=== PATIENT | female | born 1955 | race Caucasian/White ===

== ENCOUNTER 2023-05-28 12:59 | Outpatient (OUT) | payer MEDICARE, SELFPAY ==
--- NOTE | 2023-05-28 13:12 | MM_ITS ---
Patient: VIDHI HAMILTON Exam Date: 05/28/2023 : 1955 Gender:F Ordering : DR Teri Gonzalez M.D. Admission #: [id number] Family : Order #: [id number] CLICK HERE TO VIEW EXAM RADIOLOGY REPORT PROCEDURE: MM TOMOSYNTHESIS DIAGNOSTIC RT COMPARISON: MG MAMM RT DIAG FU, 11/15/2022. MG MAMM SCREEN 3D BRODIE CAD, 10/29/2022. MG MAMM SCREEN 3D BRODIE CAD, 11/15/2020. MG MAMM SCREEN 3D BRODIE CAD, 09/10/2019. INDICATIONS: Abnormal Mammogram R92.8 Calculator Name NCI Breast Cancer Risk Assessment Tool 5 Year Breast Cancer Risk 4.50% Lifetime Breast Cancer Risk 15.40% Personal Breast Cancer No Personal Ovarian Cancer No Treatments None Family Cancers Father with bladder cancer at age ~70; Grandfather-maternal with throat,tongue cancer at age ~70; Mother with breast cancer at age 44. LOCATION: [facility] BREAST COMPOSITION: Heterogeneously dense,which may obscure small masses. FINDINGS: DIAGNOSTIC CATEGORY 2--BENIGN FINDING: RIGHT BREAST: Stable, chronic architectural distortion within the posterior upper inner quadrant. No significant suspicious finding. No significant change has occurred. RECOMMENDATIONS: ROUTINE MAMMOGRAM AND CLINICAL EVALUATION IN 12 MONTHS. PLEASE NOTE: A NORMAL MAMMOGRAM DOES NOT EXCLUDE THE POSSIBILITY OF BREAST CANCER. A CLINICALLY SUSPICIOUS PALPABLE LUMP SHOULD BE BIOPSIED. Dictated by: Frantz Stephens M.D. on 05/28/2023 at 13:35 Approved by: Frantz Stephens M.D. on 05/28/2023 at 13:38
== END 2023-05-28 13:00 | disposition home or self-care (01) ==
LOC: MAMMO 13:00
PROVIDERS: PCP Family Medicine; Visit Provider Family Medicine
DX: R92.8 Other abnormal and inconclusive findings on diagnostic imaging of breast (principal); Z80.52 Family history of malignant neoplasm of bladder; Z80.3 Family history of malignant neoplasm of breast; Z80.2 Family history of malignant neoplasm of other respiratory and intrathoracic organs
CPT/HCPCS: 77065; G0279

== ENCOUNTER 2024-08-06 11:22 | Outpatient (OUT) | payer MEDICARE, SELFPAY ==
--- NOTE | 2024-08-06 11:25 | MM_ITS ---
Patient Name: VIDHI HAMILTON MR#: [id number] : 1955 Exam Date: 08/06/2024 Ordering Doctor: DR Teri Gonzalez M.D. RADIOLOGY REPORT PROCEDURE: MM TOMOSYNTHESIS SCREENING BI COMPARISON: MG MAMM RT DIAG FU, 11/15/2022. MM TOMOSYNTHESIS DIAGNOSTIC RT, 05/28/2023. INDICATIONS: Screening mammogram Calculator Name NCI Breast Cancer Risk Assessment Tool 5 Year Breast Cancer Risk 4.50% Lifetime Breast Cancer Risk 14.90% Personal Breast Cancer No Personal Ovarian Cancer No Treatments None Family Cancers Father with bladder cancer at age ~70; Grandfather-maternal with throat,tongue cancer at age ~70; Mother with breast cancer at age 44. LOCATION: [facility] BREAST COMPOSITION: The breasts are heterogeneously dense,which may obscure small masses. FINDINGS: DIAGNOSTIC CATEGORY 2--BENIGN FINDING. NO CHANGE FROM COMPARISON. Scattered benign-appearing calcifications are present. Scattered benign-appearing lymph nodes are present. RIGHT BREAST: No significant suspicious finding. LEFT BREAST: No significant suspicious finding. RECOMMENDATIONS: ROUTINE MAMMOGRAM AND CLINICAL EVALUATION IN 12 MONTHS. PLEASE NOTE: A NORMAL MAMMOGRAM DOES NOT EXCLUDE THE POSSIBILITY OF BREAST CANCER. A CLINICALLY SUSPICIOUS PALPABLE LUMP SHOULD BE BIOPSIED. Dictated by: Dez Holguin MD on 08/06/2024 at 12:17 Approved by: Dez Holguin MD on 08/06/2024 at 12:18
== END 2024-08-06 11:23 | disposition home or self-care (01) ==
LOC: MAMMO 11:22
PROVIDERS: PCP Family Medicine; Visit Provider Family Medicine
DX: Z12.31 Encounter for screening mammogram for malignant neoplasm of breast (principal); Z80.52 Family history of malignant neoplasm of bladder; Z80.8 Family history of malignant neoplasm of other organs or systems; Z80.3 Family history of malignant neoplasm of breast
CPT/HCPCS: 77063; 77067

== ENCOUNTER 2025-05-17 09:06 | Emergency (ER) | payer MEDICARE, SELFPAY ==
--- NOTE | 2025-05-17 09:22 | SWNOTE1 ---
SW called Dr. Henriquez office to see if pt has any other contacts besides her who has , they do not.
--- OUTSIDE RECORDS SUMMARY | 2025-05-17 09:26 | XMS_ITS | Clinical Summary ---
Author Organization [facility] Address [address] [place] [address] Care Team Providers Care Station Installation Supervisor Name Role Phone Unavailable Primary Care Provider Unavailabl e Social History Tobacco Use Types Packs/Day Years Used Date Smoking Tobacco: Never Assessed Comments Unknown Sex and Gender Information Value Date Recorded Sex Assigned at Not on file Legal Sex Female 6:33 PM EDT Gender Identity Not on file Sexual Orientation Not on file Plan of Treatment Not on file
--- NOTE | 2025-05-17 09:49 | ED_ITS ---
HPI HPI - General Adult General Chief complaint: Cardiac Arrest/CPR Stated complaint: CARDIAC ARREST Time Seen by Provider: 05/17/25 09:36 Mode of arrival: ambulance History of Present Illness HPI narrative: 70-year-old female to the emergency department with chief complaint of cardiopulmonary arrest. [facility] brought the patient with CPR in progress to the emergency department. Report was received from food checkers and cashiers supervisor Prem. Call was for shortness of breath to the home. Shortly after arrival the patient had a witnessed arrest by EMS. ACLS interventions were initiated. 2 rounds of epi prior to arrival. 10 minutes total downtime prior to transport. IO was placed in the left tib-fib. LMA was placed, the patient arrived being bagged. PEA initial rhythm. Review of Systems ROS Status of ROS unobtainable due to medical condition Exam Narrative Exam Narrative: General: Patient in extremis Airway: LMA Breathing: Bagged, equal chest Circulation: Cool mottled skin, no pulse Disability: GCS 3 T Exposure: No evidence of trauma. Medical Decision Making MDM Narrative Medical decision making narrative: 70-year-old female to the emergency department as cardiopulmonary arrest from the field. PEA and pulseless on arrival. ACLS interventions were continued. Definitive airway was placed by myself see procedure note. Fluids were infused. H's and T's were considered. ACLS interventions. Addition of 2 A of bicarb. POCUS Echo showed cardiac standstill in each pulse check. After downtime of greater than 30 minutes, no response to ACLS interventions. Futility of continuation of resuscitation was considered. No reversible causes of arrest identified. The patient was pronounced at 0935 on 05/17/2025 by myself. PCP and paper products inspector were called. [facility] notified by nurse. Trevor Baum DO, FAAEM Procedure: Intubation Indication: The patient required emergent endotracheal intubation. Contraindications: None Medications: None An S3 blade was used to video visualize the patient?s vocal cords. Under visualization a 7.5 tube was passed easily through the cords. The tube was inserted to a depth of 21cm at the lip. The patient bagged easily. Breath sounds were equal bilaterally and there was no gurgling over the gastrum. Qualitative capnography showed appropriate color change with bagging. Tube was secured in the standard fashion. Patient tolerated the procedure well. Critical Care Procedure Note Authorized and Performed by: Trevor Baum DO Total critical care time: 30 min Due to a high probability of clinically significant, life threatening deterioration, the patient required my highest level of preparedness to intervene emergently and I personally spent this critical care time directly and personally managing the patient. This critical care time included obtaining a history; examining the patient; pulse oximetry; ordering and review of studies; arranging urgent treatment with development of a management plan; evaluation of patient's response to treatment; frequent reassessment; and, discussions with other providers. This critical care time was performed to assess and manage the high probability of imminent, life-threatening deterioration that could result in multi-organ failure. It was exclusive of separately billable procedures and treating other patients and teaching time. Please see MDM section and the rest of the note for further information on patient assessment and treatment. Medical Records Medical records reviewed: Yes I reviewed the patient's medical records Discharge Plan Discharge Patient Disposition: Probable Cause of Probable Cause of : Cardiac arrest
--- NOTE | 2025-05-17 10:12 | PC.NURSE ---
Dr Baum spoke with pt's PCP, FRANNIE SALMERON, and discussed case with her. Denies any known medical history. This RN called [facility] coroner's office, no answer, LM. Pt's neighbor, Felicita, reports of a sister who lives in [place] and is trying to get her number.
--- NOTE | 2025-05-17 10:41 | PC.NURSE ---
Another RN, Carmen, speaking on the phone with pt's CAROLE, Lou, and informing her of her expiration.
--- NOTE | 2025-05-17 11:59 | PC.NURSE ---
This RN attempting to call multiple numbers found for brotherHelder. Will try again later
--- NOTE | 2025-05-17 15:42 | PC.NURSE ---
1020- Dr Baum speaking with dog daycare provider on the phone at this time
== END 2025-05-17 11:14 | disposition expired ==
PROVIDERS: Emergency Provider Student in an Organized Health Care Education/Training Program; PCP Family Medicine
DX: I46.9 Cardiac arrest, cause unspecified (principal)
CPT/HCPCS: 31500; 92950; 99291; J0171